=== PATIENT | female | born 1960 | race Caucasian/White ===

== ENCOUNTER → 2018-07-15 | Outpatient (CLI) | payer OTHER ==
[~2018-07-15] MED LIST: ASPIRIN EC81 M1; AZITHROMYCIN 2250 MG PO; IBUPROFEN 800800 M1 PO; LEVOTHROID; LISINOPRIL20 MG; MULTIVITAMINS; NORCO 5-325 TA1 EACH PO; ONDANSETRON HCL4 M3 PO; PRILOSEC PO; RANITIDINE HCL300 M1; ZOFRAN ODT4 MG PO
== END ==
LOC: M.RAD 10:32
DX: Z12.31 Encounter for screening mammogram for malignant neoplasm of breast (principal)

== ENCOUNTER → 2019-08-18 | Outpatient (CLI) | payer OTHER | LOC: M.RAD 10:27 | DX: Z12.31 Encounter for screening mammogram for malignant neoplasm of breast (principal) ==

== ENCOUNTER → 2020-11-17 | Outpatient (CLI) | payer BC | LOC: M.RAD 10:49 | PROVIDERS: ATTEND Nurse Practitioner Adult Health | DX: Z12.31 Encounter for screening mammogram for malignant neoplasm of breast (principal) ==